=== PATIENT | male | born 1970 | race African-American/Black ===

== ENCOUNTER 2018-07-03 22:35 | Emergency (ER) | payer OTHER ==
[2018-07-04] MEDS ORDERED: METOCLOPRAMIDE HCL 10 MG TABLET PO ONE (00:49)
[2018-07-04] MEDS ORDERED: KETOROLAC TROMETHAMINE 60 MG/2 ML SDV IM ONE (00:50)
[2018-07-04] MEDS ORDERED: AZITHROMYCIN 250 MG TABLET PO ONE (00:53)
[2018-07-04] MEDS ORDERED: CEFTRIAXONE INJ 250 MG VIAL IM ONE (00:53)
--- NOTE | 2018-07-04 01:06 | ER Document Report ---
ED Medical Screen (RME) - General Chief Complaint: Headache Stated Complaint: HEADACHE LEFT SIDE, BURN WHEN URNIATING Time Seen by Provider: 07/04/18 00:47 TRAVEL OUTSIDE OF THE [place] IN LAST 30 DAYS: No - HPI Notes: 07/04/18 00:58 Patient is a 48-year-old male who presents to the emergency department with a chief complaint of a left-sided headache that has been constant for a few months. Patient states that he has had minimal relief with Tylenol and ibuprofen. Patient says that at times when the headache is severe he will get nausea. Denies vomiting. Denies photosensitivity. 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 He is unsure if the dust and allergens are causing this pain patient denies runny nose. Patient does report a dry cough. Patient also complains of burning with urination. Patient states that this started 3 days ago. Patient reports that he is having clear penile discharge which is different from his n ormal. Patient states he did have intercourse about 1 week ago and did use a condom but reports that the condom did break. Patient denies testicular pain or swelling. Patient denies any lesions or sores on his penis. Patient denies fever or rash. Patient states he would like to be checked for STDs and to be treated. Physical Exam - Vital signs Vitals: Temp Pulse Resp BP Pulse Ox 98.1 F 74 20 148/79 H 98 07/03/18 23:01 07/03/18 23:01 07/03/18 23:01 07/03/18 23:01 07/03/18 23:01 Interpretation: Hypertensive - General General appearance: Appears well, Alert In distress: None - Neurological Neuro grossly intact: Yes Cognition: Normal Orientation: AAOx4 [place] Coma Scale Eye Opening: Spontaneous [place] Coma Scale Verbal: Oriented [place] Coma Scale Motor: Obeys Commands [place] Coma Scale Total: 15 Speech: Normal Cranial nerves: Normal Cerebellar coordination: Normal Motor strength normal: LUE, RUE, LLE, RLE 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 - Vital Signs Vital signs: Temp Pulse Resp BP Pulse Ox 98.1 F 74 20 148/79 H 98 07/03/18 23:01 07/03/18 23:01 07/03/18 23:01 07/03/18 23:01 07/03/18 23:01
[2018-07-04 01:58] LABS: APPEARANCE,URINE SLIGHTLY-CLOUDY; BILIRUBIN,URINE NEGATIVE (NEGATIVE); COLOR,URINE YELLOW; GLUCOSE, URINE NEGATIVE (NEGATIVE); KETONES,URINE NEGATIVE (NEGATIVE); LEUKOCYTE ESTERASE,URINE SMALL (NEGATIVE); NITRITE,URINE NEGATIVE (NEGATIVE); PROTEIN,URINE NEGATIVE (NEGATIVE); UROBILINOGEN,URINE NEGATIVE mg/dL (<2.0)
[2018-07-04 02:25] LABS: ABSOLUTE BASOPHILS # (AUTO) 0.1 10^3/uL (0.0-0.2); ABSOLUTE EOSINOPHILS # (AUTO) 0.3 10^3/uL (0.0-0.6); ABSOLUTE LYMPHOCYTES (AUTO) 2.2 10^3/uL (0.5-4.7); ABSOLUTE MONOCYTES (AUTO) 0.6 10^3/uL (0.1-1.4); ABSOLUTE NEUT (AUTO) 5.5 10^3/uL (1.7-8.2); BASOPHILS % (AUTO) 0.6 % (0-2); EOSINOPHILS % (AUTO) 2.9 % (0-6); HEMATOCRIT 42.6 % (37.9-51.0); HEMOGLOBIN 13.7 g/dL (13.5-17.0); LYMPHOCYTES % (AUTO) 25.1 % (13-45); MEAN CORPUSCULAR HEMOGLOBIN 24.2 pg (27.0-33.4); MEAN CORPUSCULAR HGB CONC 32.1 g/dL (32.0-36.0); MEAN CORPUSCULAR VOLUME 75 fl (80-97); MONOCYTES % (AUTO) 6.9 % (3-13); PLATELET COUNT 297 10^3/uL (150-450); RED BLOOD COUNT 5.65 10^6/uL (4.35-5.55); SEGMENTED NEUTROPHILS % (AUTO) 64.5 % (42-78); TOTAL CELLS COUNTED % (AUTO) 100 %; WHITE BLOOD COUNT 8.6 10^3/uL (4.0-10.5)
[2018-07-04 02:52] LABS: ANION GAP 12 (5-19); BLOOD UREA NITROGEN 13 mg/dL (7-20); CALCIUM 9.2 mg/dL (8.4-10.2); CARBON DIOXIDE 29 mmol/L (22-30); CHLORIDE 101 mmol/L (98-107); GLUCOSE 107 mg/dL (75-110); POTASSIUM 4.2 mmol/L (3.6-5.0); SODIUM 141.7 mmol/L (137-145)
[2018-07-04 03:05] VITALS: BP 150/90
--- NOTE | 2018-07-04 03:13 | ER Document Report ---
ED Headache - General Chief Complaint: Headache Stated Complaint: HEADACHE LEFT SIDE, BURN WHEN URNIATING Time Seen by Provider: 07/04/18 00:47 Primary Care Provider: TIKI CAMPO MD [COMMUNITY BASED STAFF] - Follow up as needed TRAVEL OUTSIDE OF THE [place] IN LAST 30 DAYS: No - HPI Notes: Patient is a 48-year-old male who presents to the emergency department with a chief complaint of a left-sided headache that has been constant for a few months. Patient states that he has had minimal relief with Tylenol and ibuprofen. Patient says that at times when the headache is severe he will get nausea. Denies vomiting. Denies photosensitivity. 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 He is unsure if the dust and allergens are causing this pain patient denies runny nose. Patient does report a dry cough. Patient also complains of burning with urination. Patient states that this started 3 days ago. Patient reports that he is having clear penile discharge which is different from his normal. Patient states he did have intercourse about 1 week ago and did use a condom but reports that the condom did break. Patient denies testicular pain or swelling. Patient denies any lesions or sores on his penis. Patient denies fever or rash. Patient states he would like to be checked for STD's and to be treated. - Related Data Allergies/Adverse Reactions: No Known Allergies Allergy (Unverified 07/04/18 01:49) Past Medical History - Social History Smoking Status: Current Every Day Smoker Chew tobacco use (# tins/day): No Frequency of alcohol use: Occasional Drug Abuse: Marijuana Family History: None Patient has suicidal ideation: No Patient has homicidal ideation: No Renal/ Medical History: Denies: Hx Peritoneal Dialysis Past Surgical History: Reports: Hx Orthopedic Surgery - r wrist, left arm Review of Systems - Review of Systems Constitutional: No symptoms reported EENT: No symptoms reported Cardiovascular: No symptoms reported Respiratory: No symptoms reported Gastrointestinal: See HPI Genitourinary: See HPI Male Genitourinary: See HPI Musculoskeletal: No symptoms reported Skin: No symptoms reported Hematologic/Lymphatic: No symptoms reported Neurological/Psychological: See HPI, Headaches Physical Exam - Vital signs Vitals: Temp Pulse Resp BP Pulse Ox 98.1 F 74 20 148/79 H 98 07/03/18 23:01 07/03/18 23:01 07/03/18 23:01 07/03/18 23:01 07/03/18 23:01 Interpretation: Hypertensive - Notes Notes: GENERAL: Well-appearing, well-nourished and in no acute distress. HEAD: Atraumatic, normocephalic. EYES: Pupils equal round and reactive to light, extraocular movements intact, sclera anicteric, conjunctiva are normal. ENT: TMs normal, nares patent, oropharynx clear without exudates. Moist mucous membranes. NECK: Normal range of motion, supple without lymphadenopathy or JVD. No nuchal ridigity. LUNGS: Breath sounds clear to auscultation bilaterally and equal. No wheezes rales or rhonchi. HEART: Regular rate and rhythm without murmurs, rubs or gallops. ABDOMEN: Soft, nontender, normoactive bowel sounds. No guarding, no rebound. No masses appreciated. EXTREMITIES: Normal range of motion, no pitting or edema. No clubbing or cyanosis. NEUROLOGICAL: Cranial nerves II through XII grossly intact. Normal speech, normal gait. PSYCH: Normal mood, normal affect. SKIN: Warm, Dry, normal turgor, no rashes or lesions noted. Face symmetric. Tongue protrudes midline. Extraocular motions intact. Pupils are 2 mm and equally reactive. Normal speech, normal gait. 5 out of 5 strength in both the distal and proximal upper and lower extremities bilaterally. Sensation is grossly intact throughout. Finger to nose testing normal. Pronator drift normal. Course - Re-evaluation Re-evalutation: 07/04/18 I had originally seen the patient in triage and ordered medication for his headache. Patient reports that his headache is now a 0 out of 5. Patient repeat neuro exam was negative. Patient is sitting upright, alert and oriented, without any distress. Performed genital exam with Nestor Patel PA-C which did reveal clear discharge oozing from the tip of the penis, patient had small circular erythematous healing lesion to the left side of the penis shaft that appears to be healing - no drainage, not indurated, patient states that this area of question appeared to be a hair follicle that he continued to pick at. No abscess. No lesions noted that are consistent with herpes or syphilis. No testicular swelling or erythema noted, no tenderness to the epididymitis. 07/04/18 Discussed positive chlamydia results with patient informed patient that he was treated for gonorrhea and chlamydia while in the emergency department, and that this is a 1 time dose. Educated patient on the importance of safe sex practices to include condoms. Informed patient to refrain from sexual intercourse or activity for the next 2 weeks and that he should inform his partner so they can get treated, and that his partner should refrain from sexual activity for 2 weeks after treatment. Provided patient with referral to Dr. Campo to establish primary care if he would like to use this PCP. Informed patient that he needs to have his blood pressure rechecked as his blood pressure was in the 140s and 150s today. Informed patient that this could be the reason why he is having constant headaches over the past few months. 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 - Vital Signs Vital signs: Temp Pulse Resp BP Pulse Ox 97.4 F 74 14 150/90 H 100 07/04/18 03:04 07/04/18 03:04 07/04/18 03:04 07/04/18 03:04 07/04/18 03:04 - Laboratory Result Diagrams: 07/04/18 02:12 07/04/18 02:12 Laboratory results interpreted by me: 07/04/18 07/04/18 07/04/18 01:05 01:05 02:12 RBC 5.65 H MCV 75 L MCH 24.2 L RDW 16.0 H Ur Leukocyte Esterase SMALL H Chlamydia DNA (PCR) DETECTED H 07/04/18 07:28 Positive for chlamydia, patient was treated in the emergency department for this. Small amount of Leukocytes in the urine, the UA was resulted from a dirty specimen. This was not a clean catch. Discharge - Discharge Clinical Impression: Penile discharge, Dysuria Headache Qualifiers: Headache type: unspecified Headache chronicity pattern: chronic headache In tractability: not intractable Qualified Code(s): R51 - Headache Condition: Stable Disposition: HOME, SELF-CARE Instructions: Reglan ([facility]), Toradol Injection ([facility]) Additional Instructions: Today you are seen in the emergency department for headache and possible sexually transmitted disease exposure. We went ahead and treated you for gonorrhea and chlamydia. We have sent off cultures and if they are positive you will be contacted. We have provided a referral for a follow-up physician Dr. Campo, please contact their office to make a follow-up appointment in regards to establishing care with a primary care doctor and monitoring of your high blood pressure. Please return to the emergency department if you have any worsening symptoms such as severe headache, dizziness, altered level of consciousness, vomiting, numbness or tingling in any part of your body or any other concerning signs or symptoms. High Blood Pressure When your blood pressure was taken today it was elevated. Today's reading was____150/90 . Pre-hypertension/Hypertension: The patient has been informed that they may have pre-hypertension or Hypertension based on a blood pressure reading in the emergency department. I recommend that the patient call the primary care provider listed on their discharge instructions or a physician of their choice this wee to arrange follow up for further evaluation of possible pre- hypertension or Hypertension. Sometimes, stress or illness causes a temporary elevation of your blood pressure. We suggest that you get your blood pressure measured three more times during the next few days to see if this is more than a temporary abnormality. If your blood pressure is greater than 150/90 on each occasion, you must have treatment. Some simple things you can do to help are: If you have blood pressure medicine but aren't using it regularly, start taking it again. Get some aerobic exercise for at least 20 minutes on a daily basis. (See your doctor before beginning a new exercise program.) Eat a low-fat diet. Lose excess weight. Avoid salty foods and avoid adding salt to any of the foods you eat. Avoid diet pills, decongestants, "energizing" herbs, and other medicines that elevate blood pressure. If left untreated, hypertension greatly enhances your risk for developing heart disease and strokes. Please don't ignore this problem. Headache The physician does not feel that the headache you are experiencing has a serious underlying cause. Most headaches are due to emotional stress, with resultant muscle tension (tension headache). Occasionally, headaches are secondary to changes in the blood vessels of the scalp (vascular headache and migraine headache). Sometimes, a headache is the first symptom of another developing illness, such as a viral infection. You have no evidence of stroke, bleeding, meningitis, or other serious cause of your headache. The treatment of headaches varies with the severity and cause of the pain. Not all headaches need pain shots. In fact, there is evidence that using narcotics for headaches may make them worse in the long run. The physician will determine the therapy that's in your best interest. If you develop a fever, if the headache is different from any you've previously experienced, or if the headache progressively worsens, then call your physician at once or go to the emergency room. Forms: Return to Work Referrals: TIKI CAMPO MD [COMMUNITY BASED STAFF] - Follow up as needed
[2018-07-04 03:16] LABS: CHLAM PCR DETECTED (NOT DETECT); GON PCR NOT DETECTED (NOT DETECT)
== END 2018-07-04 03:37 | disposition home or self-care (01) ==
LOC: ER 22:35
DX: R36.9 Urethral discharge, unspecified (principal); R30.0 Dysuria; R51 Headache; R11.0 Nausea; F17.200 Nicotine dependence, unspecified, uncomplicated
CPT/HCPCS: 99284; 96372; 36415; 85025; 80048; 81001; 87491; 87591; J1885; J0696